=== PATIENT | female | born 1955 | race Caucasian/White ===

== ENCOUNTER 2018-04-09 05:41 | Outpatient (CLI) | payer OTHER ==
[~2018-04-09] VITALS: Ht 160 cm; Wt 95.3 kg
[2018-04-09] MEDS ORDERED: NF-MET200T PO (09:30)
[2018-04-09] MEDS ORDERED: HYDR-3812 PO (09:30)
[2018-04-09] MEDS ORDERED: GABA-488 PO (09:30)
== END 2018-04-09 12:17 | disposition home or self-care (01) ==
LOC: PREOP 05:41
PROVIDERS: ATTEND Orthopaedic Surgery Orthopaedic Surgery of the Spine
DX: Z01.818 Encounter for other preprocedural examination (principal)

== ENCOUNTER 2018-04-13 07:13 | Day surgery (SDC) | payer OTHER ==
[~2018-04-13] VITALS: Ht 160 cm; Wt 95.3 kg
[~2018-04-13 07:13] MED LIST: GABA-488 PO; HYDR-3812 PO; NF-MET200T PO
[2018-04-13 07:24] VITALS: BP 145/99
[2018-04-13] MEDS ORDERED: ceFAZolin 2 GM IV Premixed 50 ML IV ONE (07:30)
[2018-04-13] MEDS ORDERED: VANCOMYCIN 1000 MG/VIAL ONE (07:38)
[2018-04-13] MEDS ORDERED: GENTAMICIN 40 MG/ML 2 ML INJ SDV ONE (07:39)
[2018-04-13] MEDS ORDERED: BUPIVACAINE 0.25% 30 ML (SENSORCAINE) VIAL ONE (07:39)
[2018-04-13] MEDS ORDERED: SEVOFLURANE (ULTANE) 15 ML INHAL SOLN ONE ×2 (08:10→10:18)
[2018-04-13] MEDS ORDERED: LIDOCAINE PF 2% 5 ML (XYLOCAINE) VIAL ONE (08:10)
[2018-04-13] MEDS ORDERED: ROCURONIUM 10 MG/ML 5 ML SYRINGE IV ONE ×2 (08:10→10:18)
[2018-04-13] MEDS ORDERED: DEXAMETHASONE 10 MG/ML (DECADRON) 1 ML VIAL ONE ×2 (08:10→10:18)
[2018-04-13] MEDS ORDERED: proPOfol 200 MG/20 ML (DIPRIVAN) VIAL IV ONE ×2 (08:10→10:18)
[2018-04-13] MEDS ORDERED: MIDAZOLAM 2 MG/2 ML (VERSED) VIAL ONE (08:11)
[2018-04-13] MEDS ORDERED: fentaNYL INJECTION 100 MCG/2 ML AMP ONE (08:11)
[2018-04-13] MEDS ORDERED: ONDANSETRON 4 MG/2 ML (SDV) Z0FRAN IVP ONE (08:15)
[2018-04-13] MEDS ORDERED: ONDANSETRON 4 MG/2 ML (SDV) Z0FRAN IV ONE (08:15)
[2018-04-13] MEDS ORDERED: FAMOTIDINE 20MG/2ML IV (PEPCID) ONE (08:15)
[2018-04-13] MEDS ORDERED: FAMOTIDINE 20MG/2ML IV (PEPCID) IV ONE (08:15)
[2018-04-13] MEDS ORDERED: FAMOTIDINE 20MG/2ML IV (PEPCID) IVP ONE (08:15)
[2018-04-13] MEDS ORDERED: ONDANSETRON 4 MG/2 ML (SDV) Z0FRAN ONE ×2 (08:16→10:18)
[2018-04-13] MEDS: LACTATED RINGERS 1,000 ML IV PRN ×2 (08:22→10:21)
[2018-04-13] MEDS ORDERED: DEXMEDETOMIDINE 200 MCG/2 ML (PRECEDEX) VIAL IV ONE (10:18)
[2018-04-13] MEDS ORDERED: SUCCINYLCHOLINE INJ 100 MG/5 ML SYR ONE (10:18)
[2018-04-13] MEDS ORDERED: TRANEXAMIC ACID 100 MG/ML 10 ML INJECTION IV ONE (10:48)
--- NOTE | 2018-04-13 11:10 | Progress Note-Post Operative ---
Post-Operative Progess Note Surgeon (s)/Coffee Roaster (s) Surgeon MEGAN SERRANO MD Coffee Roaster: GAMALIEL Grubbs Pre-Operative Diagnosis LUMBAGO Post-Operative Diagnosis Same Procedure & Operative Findings Date of Procedure 04/13/18 Procedure Performed/Findings Placement of permanent spinal cord stim, via laminectomy Anesthesia Type geta Estimated Blood Loss Estimated blood loss (mL): min Specimens/Packing Specimens Removed none MEGAN SERRANO MD Apr 13, 2018 11:10 am
[2018-04-13] MEDS ORDERED: MEPERIDINE (DEMEROL) INJ 50 MG/ML IVP ONE (11:30)
[2018-04-13] MEDS ORDERED: fentaNYL INJECTION 100 MCG/2 ML AMP IVP ONE (11:30)
[2018-04-13] MEDS ORDERED: ONDANSETRON 4 MG/2 ML (SDV) Z0FRAN IVP PRN (11:30)
[2018-04-13 12:25] VITALS: BP 142/95
[2018-04-13 12:55] VITALS: BP 165/102
[2018-04-13] MEDS ORDERED: HYDROcodone/APAP 5 MG/325 MG (LORTAB) TAB PO PRN (13:00)
[2018-04-13 14:00] VITALS: BP 154/93
--- NOTE | 2018-04-13 14:05 | Diagnostic Imaging Report ---
INDICATION: Fluoroscopy during spinal cord stimulator placement. TECHNIQUE/FINDINGS: Fluoroscopy was provided in the OR during spinal cord stimulator placement. 32 seconds of fluoroscopy was utilized. A stimulator is seen at the midline at the level of approximately T8-9. IMPRESSION: Fluoroscopy during spinal cord stimulator placement. Dictated by: Dictated on workstation # [id number]
--- NOTE | 2018-04-13 14:33 | Anesthesia-General Post-Op ---
General Patient Condition Mental Status/LOC: Same as Preop Cardiovascular: Satisfactory Nausea/Vomiting: Absent Respiratory: Satisfactory Pain: Controlled Complications: Absent Post Op Complications Complications None Follow Up Care/Instructions Patient Instructions None needed. Anesthesia/Patient Condition Patient Condition Patient is doing well, no complaints, stable vital signs, no apparent adverse anesthesia problems. No complications reported per nursing. ELLA METZGER CRNA Apr 13, 2018 14:33
[2018-04-13 15:30] VITALS: BP 154/93
--- NOTE | 2018-04-13 17:34 | OPERATIVE REPORT ---
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 PROCEDURES PERFORMED: 1. T10-T11 level laminectomy for placement of paddle lead for spinal cord stimulation with conversion to Octrode leads. 2. Left-sided battery for spinal cord stimulation. 3. Complex programming of spinal cord stimulator. DATE AND TIME OF SURGERY: Please see anesthesia record. IMPLANTS USED: On[employer] Octrode leads with aborted attempt at a Penta lead and a Jamgle MRI compatible rechargeable battery. SURGEON: Megan Anthony MD CAMPUS ADMINISTRATIVE ASSISTANT: STAS Grubbs. ROLE OF SPRAY GUN STRIPER: Aid in retraction of the procedure, suction of neural elements and wound closure. ANESTHESIA: General endotracheal. ESTIMATED BLOOD LOSS: Minimal. INTRAVENOUS FLUIDS: Please see anesthesia record. ANTIBIOTICS: Ancef. COMPLICATIONS: None. SPECIMENS: None. DRAINS: One Rigo-Hagan. INDICATIONS FOR PROCEDURE: The patient is a 62-year-old female with severe back and leg pain. Previous stimulator trial with significant relief, desires operative treatment and placement of a permanent. Standard intraoperative neuromonitoring carried out by means of real time continuous high quality bidirectional remote audio and visual communication to both the in flight technician and surgeon by Dr. Rangel. SSEPS, EMGs and TOFs were carried out continuously throughout the procedure stable. DESCRIPTION OF PROCEDURE: The patient was taken to the preoperative holding area and brought back to the operative suite. After adequate induction of general anesthetic, preoperative antibiotics, carefully turned prone on the Rigo table, careful padding to all extremities, sterilely prepped and draped posterior thoracic and lumbar spine. Localization at T10-T11 level was confirmed on imaging and a small laminotomy was created. Dural separator was utilized and several passes were made with a Penta lead to try to get it rested in a midline position. Due to her deformity and scoliosis, the lead would not successfully rest in a midline position and therefore, it was aborted and converted to Octrode leads. Two Octrode leads were placed into a central position and were sufficiently midline covering across the thoracic 8 to 9 levels where she had her best pain relief. They were sutured to the lamina. Fascia was then closed, but prior to fascial closure there was some oozing and therefore a deep Rigo-Hagan drain was placed and the fascia was closed. The leads were then sutured to the fascia level, strain relief loops were created and they were tunneled to the battery site on the left side of her low back, buttock region where it was connected to the battery. The system was interrogated. It was functioning well and the wounds were then irrigated, closed in layers. The patient was transferred to recovery room in stable condition having tolerated the procedure well. Job ID: [id number] DocumentID: [id number] Dictated Date: 04/13/2018 11:06:39 Knife Operator Date: 04/13/2018 17:33:32 Dictated By: MEGAN ANTHONY MD
== END 2018-04-13 15:30 | disposition home or self-care (01) ==
LOC: SDC 07:13
PROVIDERS: ATTEND Orthopaedic Surgery Orthopaedic Surgery of the Spine
DX: M54.16 Radiculopathy, lumbar region (principal); Z11.2 Encounter for screening for other bacterial diseases; I10 Essential (primary) hypertension; K21.9 Gastro-esophageal reflux disease without esophagitis; I34.1 Nonrheumatic mitral (valve) prolapse; Z86.73 Personal history of transient ischemic attack (TIA), and cerebral infarction without residual deficits; Z98.1 Arthrodesis status; Z87.891 Personal history of nicotine dependence; G47.33 Obstructive sleep apnea (adult) (pediatric); Z91.19 Patient's noncompliance with other medical treatment and regimen; Z79.899 Other long term (current) drug therapy
CPT/HCPCS: 87081